=== PATIENT | female | born 1990 | race Caucasian/White ===

== ENCOUNTER 2018-06-28 16:25 | Emergency (ER) | payer OTHER, SELFPAY ==
--- NOTE | 2018-06-28 18:51 | CT ---
CT FACIAL BONES: 06/28/2018 HISTORY: Injury. Trauma. Pain. COMPARISON: None. TECHNIQUE: Axial CT imaging at 2.5 mm intervals through the facial bones, with coronal and sagittal reformatted imaging. FINDINGS: Acute, comminuted bilateral nasal bones fractures are noted with lateral angulation to the left. The frontal sinuses, sphenoid sinuses, ethmoid air cells, and right maxillary sinus are unremarkable. T here is a polypoid lesion within the maxillary sinus on the left, posteriorly, measuring 2.5 cm. The mastoid air cells appear well aerated. The zygomatic arches and the pterygoid plates are intact bilaterally. Neither temporomandibular joint is dislocated. The mandible and the maxilla demonstrate no acute fra cture. Coronal reformatted imaging demonstrates discontinuity involving the orbital floor on the rig ht, suggesting age indeterminate orbital floor fracture on the right. There is no herniation of fat into the right maxillary sinus, and the inferior rectus muscle appears normal. In addition, there is no fluid seen in the right maxillary sinus. The orbital floor on the left appears intact. The medi al orbital wall appears intact bilaterally. IMPRESSION: Age indeterminate orbital floor fracture on the right. Given the lack of fluid within the right maxi llary sinus, this fracture could be old. Clinical correlation is essential. There are acute, commin uted bilateral nasal bone fractures with left lateral angulation. POS: YUE
== END 2018-06-28 18:35 | disposition home or self-care (01) ==
LOC: ERS 16:25
DX: S02.2XXA Fracture of nasal bones, initial encounter for closed fracture (principal); S02.31XA Fracture of orbital floor, right side, initial encounter for closed fracture; W22.8XXA Striking against or struck by other objects, initial encounter
CPT/HCPCS: 70486

== ENCOUNTER 2018-07-07 09:21 | Day surgery (SDC) | payer OTHER ==
[2018-07-06 15:53] VITALS: BMI 24.2
[2018-07-07] MEDS ORDERED: Oxymetazoline HCl 0.05% ( 15 ML ) ONE ×2 (09:52→11:48)
[2018-07-07 10:35] LABS: BHCG - Serum Negative (NEGATIVE); Pregs Control Background? CLEAR/WHITE (CLR/WHITE); Pregs Control Bar Appear? YES (CONTROL BAR)
[2018-07-07] MEDS ORDERED: Lidocaine 1% PF 5 ML VIAL ONE (10:36)
[2018-07-07] MEDS ORDERED: Ondansetron PF 4 MG/2 ML Vial ONE (10:36)
[2018-07-07] MEDS ORDERED: Dexamethasone 20 MG/5 ML VIAL ONE (10:36)
[2018-07-07] MEDS ORDERED: PROPOFOL 200 MG/20 ML VIAL ONE (10:36)
[2018-07-07] MEDS ORDERED: Lidocaine 1% w/Epinephrine 1:100K 20 ML VIAL ONE (11:48)
[2018-07-07] MEDS ORDERED: Bacitracin Zinc Ointment 30 gm TUBE ONE (11:48)
[2018-07-07] MEDS ORDERED: Midazolam HCl 2 mg/2 ml Vial ONE (11:50)
[2018-07-07] MEDS ORDERED: Fentanyl 100 MCG/2 ML VIAL ONE (11:50)
--- NOTE | 2018-07-08 13:46 | OP ---
DATE OF PROCEDURE: 07/07/2018 PREOPERATIVE DIAGNOSIS: Closed nasal fracture. POSTOPERATIVE DIAGNOSIS: Closed nasal fracture. PROCEDURE PERFORMED: Closed reduction nasal fracture. COMPLICATIONS: None. ANESTHESIA: LMA. PROCEDURE IN DETAIL: The patient was taken to the operative room, placed supine on table. General endotracheal LMA anesthesia was obtained by the anesthesia staff. Following this the patient was prepped and draped for standard nasal procedures. Following this the nasal bone elevator was used intranasally to remobilize the nasal bone bilaterally. Nasal bones were approximated into the normal anatomic position and then were secured externally with a [place] splint. The patient tolerated the procedure well. Job ID: [id number]
== END 2018-07-07 14:04 | disposition home or self-care (01) ==
LOC: SDC 09:21
PROVIDERS: ATTEND Otolaryngology Plastic Surgery within the Head & Neck
PROC: 0NSBXZZ Reposition Nasal Bone, External Approach (ICD-10-PCS; principal; 2018-07-07)
DX: S02.2XXA Fracture of nasal bones, initial encounter for closed fracture (principal); J34.89 Other specified disorders of nose and nasal sinuses; W20.8XXA Other cause of strike by thrown, projected or falling object, initial encounter
CPT/HCPCS: 36415; 84703; 85014; J0131; J1100; J2001; J2250; J2405; J2704; J3010